=== PATIENT | female | born 1980 | race Caucasian/White ===

== ENCOUNTER 2018-01-31 19:20 | Emergency (ER) | payer OTHER ==
[~2018-01-31] VITALS: Ht 167.6 cm; Wt 103.4 kg
[~2018-01-31 19:20] MED LIST: CLEOCIN HCL150 MG PO; NORCO 5-325 TA1 EACH PO
[2018-01-31] MEDS ORDERED: CEFDINIR300 MG PO (19:45)
[2018-01-31 21:08] VITALS: BP 126/73
== END 2018-01-31 21:09 | disposition home or self-care (01) ==
LOC: ER 19:20
DX: H66.91 Otitis media, unspecified, right ear (principal); R76.11 Nonspecific reaction to tuberculin skin test without active tuberculosis; F17.210 Nicotine dependence, cigarettes, uncomplicated; Z88.1 Allergy status to other antibiotic agents; Z98.890 Other specified postprocedural states

== ENCOUNTER 2018-03-02 20:27 | Emergency (ER) | payer OTHER ==
[~2018-03-02] VITALS: Ht 165.1 cm; Wt 99.8 kg
[~2018-03-02 20:27] MED LIST changes: +CEFDINIR300 MG PO
[2018-03-02 21:03] LABS: BASOPHILS 1.2 % (0.0-2.0); EOSINOPHILS 2.5 % (0.0-3.0); HEMATOCRIT 41.1 % (37.0-47.0); HEMOGLOBIN 14.3 gm/dL (12.0-15.0); LYMPHOCYTES 29.6 % (24.0-44.0); MCH 32.9 pg (26.0-34.0); MCHC 34.9 g/dL (28.0-37.0); MCV 94.4 fL (80.0-100.0); PLATELET COUNT 267 thou/uL (150-400); POLYS 60.7 % (36.0-66.0); RBC 4.36 mil/uL (4.20-5.00); RDW 12.7 % (10.5-14.5); WBC 8.2 thou/uL (4.0-11.0)
[2018-03-02 21:04] LABS: URINE BILIRUBIN NEGATIVE (Negative); URINE BLOOD NEGATIVE (Negative); URINE CLARITY CLEAR; URINE COLOR YELLOW; URINE GLUCOSE-RANDOM* NEGATIVE (Negative); URINE KETONES NEGATIVE (Negative); URINE LEUKOCYTES NEGATIVE (Negative); URINE NITRITE NEGATIVE (Negative); URINE PROTEIN (DIPSTICK) NEGATIVE (Negative); URINE UROBILINOGEN 0.2 E.U./dl (0.2-1.0)
[2018-03-02 21:07] LABS: CALCIUM 8.8 mg/dL (8.5-10.1); CREATININE 1.2 mg/dL (0.6-1.0); POTASSIUM 4.2 mmol/L (3.5-5.1)
[2018-03-02 21:13] LABS: ALBUMIN 3.3 g/dL (3.4-5.0); TOTAL BILIRUBIN 0.2 mg/dL (<0.1-1.0); TOTAL PROTEIN 6.6 g/dL (6.4-8.2)
[2018-03-02] MEDS ORDERED: PEPCID20 MG PO (22:25)
[2018-03-02] MEDS ORDERED: PHENERGAN 25 MG25 M1 PO (22:25)
[2018-03-02] MEDS ORDERED: BENTYL 20 MG TA20 M1 PO (22:25)
[2018-03-02] MEDS ORDERED: HYDROCODONE-AP1 EAC6 PO (22:33)
[2018-03-02 22:49] VITALS: BP 118/79
[2018-03-04] MEDS ORDERED: BENTYL 20 MG TA20 M1 PO (22:58)
[2018-03-04] MEDS ORDERED: PHENERGAN 25 MG25 M1 PO (22:58)
== END 2018-03-02 22:49 | disposition home or self-care (01) ==
LOC: ER 20:27
PROVIDERS: Physician Assistant
DX: O26.891 Other specified pregnancy related conditions, first trimester (principal); O21.8 Other vomiting complicating pregnancy; R10.13 Epigastric pain; F17.210 Nicotine dependence, cigarettes, uncomplicated; Z88.1 Allergy status to other antibiotic agents; Z98.890 Other specified postprocedural states; Z3A.00 Weeks of gestation of pregnancy not specified

== ENCOUNTER 2018-06-21 22:04 | Emergency (ER) | payer OTHER ==
[~2018-06-21] VITALS: Ht 165.1 cm; Wt 104.3 kg
[~2018-06-21 22:04] MED LIST changes: +BENTYL 20 MG TA20 M1 PO; +CEFUROXIME500 MG PO; +HYDROCODONE-AP1 EAC6 PO; +PEPCID20 MG PO; +PHENERGAN 25 MG25 M1 PO; +TRAMADOL 50 MG50 MG PO; +ZOFRAN8 MG PO
[2018-06-21 22:08] VITALS: BP 137/82
[2018-06-21] MEDS ORDERED: ZPAK PO (22:40)
== END 2018-06-21 23:19 | disposition home or self-care (01) ==
LOC: ER 22:04
DX: J20.9 Acute bronchitis, unspecified (principal); J06.9 Acute upper respiratory infection, unspecified; J02.9 Acute pharyngitis, unspecified; F17.210 Nicotine dependence, cigarettes, uncomplicated; Z88.1 Allergy status to other antibiotic agents

== ENCOUNTER 2018-07-30 22:20 | Emergency (ER) | payer OTHER ==
[~2018-07-30] VITALS: Ht 165.1 cm; Wt 104.3 kg
[~2018-07-30 22:20] MED LIST changes: +ZPAK PO
[2018-07-30 22:29] LABS: URINE BILIRUBIN NEGATIVE (Negative); URINE BLOOD NEGATIVE (Negative); URINE CLARITY CLEAR; URINE COLOR YELLOW; URINE GLUCOSE-RANDOM* NEGATIVE (Negative); URINE KETONES NEGATIVE (Negative); URINE LEUKOCYTES-REFLEX NEGATIVE (Negative); URINE NITRITE-REFLEX NEGATIVE (Negative); URINE PROTEIN (DIPSTICK) NEGATIVE (Negative); URINE UROBILINOGEN 0.2 E.U./dl (0.2-1.0)
[2018-07-30 22:30] VITALS: BP 120/81
[2018-07-30 23:16] LABS: ABSOLUTE NEUTROPHILS 4.3 thou/uL (1.4-8.2); BASOPHILS 0.8 % (0.0-2.0); EOSINOPHILS 2.5 % (0.0-3.0); HEMATOCRIT 42.3 % (37.0-47.0); HEMOGLOBIN 14.3 gm/dL (12.0-15.0); LYMPHOCYTES 31.2 % (24.0-44.0); MCH 31.6 pg (26.0-34.0); MCHC 33.7 g/dL (28.0-37.0); MCV 93.7 fL (80.0-100.0); MONOCYTES 5.7 % (1.0-8.0); PLATELET COUNT 266 thou/uL (150-400); POLYS 59.8 % (36.0-66.0); RBC 4.51 mil/uL (4.20-5.00); RDW 13.1 % (10.5-14.5); WBC 7.2 thou/uL (4.0-11.0)
[2018-07-30 23:22] LABS: CALCIUM 8.8 mg/dL (8.5-10.1); POTASSIUM 4.1 mmol/L (3.5-5.1)
== END 2018-07-31 00:17 | disposition home or self-care (01) ==
LOC: ER 22:20
PROVIDERS: Emergency Medicine
DX: R35.0 Frequency of micturition (principal); M54.9 Dorsalgia, unspecified; R11.10 Vomiting, unspecified; F17.210 Nicotine dependence, cigarettes, uncomplicated; Z88.1 Allergy status to other antibiotic agents

== ENCOUNTER 2018-08-23 22:47 | Emergency (ER) | payer OTHER ==
[~2018-08-23] VITALS: Ht 167.6 cm; Wt 90.7 kg
[2018-08-23] MEDS ORDERED: SUPHEDRINE SINU30 MG PO (23:43)
[2018-08-23] MEDS ORDERED: CEFDINIR300 MG PO (23:43)
[2018-08-23 23:55] VITALS: BP 138/82
== END 2018-08-23 23:55 | disposition home or self-care (01) ==
LOC: ER 22:47
DX: H66.91 Otitis media, unspecified, right ear (principal); F17.210 Nicotine dependence, cigarettes, uncomplicated; Z98.890 Other specified postprocedural states

== ENCOUNTER 2018-10-01 20:33 | Emergency (ER) | payer OTHER ==
[~2018-10-01] VITALS: Ht 165.1 cm; Wt 104.3 kg
[~2018-10-01 20:33] MED LIST changes: +SUPHEDRINE SINU30 MG PO
[2018-10-01] MEDS ORDERED: PYRIDOXINE HCL25 MG PO (21:26)
[2018-10-01 21:56] VITALS: BP 108/68
== END 2018-10-01 21:52 | disposition home or self-care (01) ==
LOC: ER 20:33
DX: O99.351 Diseases of the nervous system complicating pregnancy, first trimester (principal); G43.909 Migraine, unspecified, not intractable, without status migrainosus; O21.8 Other vomiting complicating pregnancy; F17.210 Nicotine dependence, cigarettes, uncomplicated; Z98.890 Other specified postprocedural states; Z88.1 Allergy status to other antibiotic agents; Z3A.01 Less than 8 weeks gestation of pregnancy

== ENCOUNTER 2018-10-05 03:45 | Emergency (ER) | payer OTHER ==
[~2018-10-05] VITALS: Ht 167.6 cm; Wt 113.4 kg
[~2018-10-05 03:45] MED LIST changes: +PYRIDOXINE HCL25 MG PO
[2018-10-05 04:04] LABS: ABSOLUTE NEUTROPHILS 6.6 thou/uL (1.4-8.2); BASOPHILS 1.4 % (0.0-2.0); EOSINOPHILS 2.7 % (0.0-3.0); HEMOGLOBIN 15.2 gm/dL (12.0-15.0); LYMPHOCYTES 29.6 % (24.0-44.0); MCH 31.3 pg (26.0-34.0); MCHC 33.7 g/dL (28.0-37.0); MCV 92.7 fL (80.0-100.0); MONOCYTES 5.4 % (1.0-8.0); PLATELET COUNT 300 thou/uL (150-400); POLYS 60.9 % (36.0-66.0); RBC 4.85 mil/uL (4.20-5.00); RDW 13.5 % (10.5-14.5); WBC 10.8 thou/uL (4.0-11.0)
[2018-10-05 04:09] LABS: CALCIUM 9.2 mg/dL (8.5-10.1); POTASSIUM 4.5 mmol/L (3.5-5.1)
[2018-10-05 05:08] LABS: URINE BILIRUBIN NEGATIVE (Negative); URINE BLOOD NEGATIVE (Negative); URINE CLARITY CLEAR; URINE COLOR YELLOW; URINE GLUCOSE-RANDOM* NEGATIVE (Negative); URINE KETONES NEGATIVE (Negative); URINE LEUKOCYTES-REFLEX NEGATIVE (Negative); URINE NITRITE-REFLEX NEGATIVE (Negative); URINE PROTEIN (DIPSTICK) NEGATIVE (Negative); URINE SPECIFIC GRAVITY >= 1.030 (1.005-1.035); URINE UROBILINOGEN 0.2 E.U./dl (0.2-1.0)
[2018-10-05 05:16] LABS: AMP/METHAMP Negative (Negative); BARBITURATES Negative (Negative); BENZODIAZEPINES Negative (Negative); COCAINE Negative (Negative); METHADONE Negative (Negative); OPIATES Negative (Negative); PCP Negative (Negative)
[2018-10-05] MEDS ORDERED: TYLENOL325 M1 PO (05:44)
[2018-10-05] MEDS ORDERED: FLEXERIL PO (05:44)
[2018-10-05] MEDS ORDERED: REGLAN 10 MG TA10 MG PO (05:45)
[2018-10-05 06:31] VITALS: BP 138/90
== END 2018-10-05 06:36 | disposition home or self-care (01) ==
LOC: ER 03:45
PROVIDERS: Emergency Medicine
DX: O21.8 Other vomiting complicating pregnancy (principal); O99.89 Other specified diseases and conditions complicating pregnancy, childbirth and the puerperium; M54.6 Pain in thoracic spine; O09.521 Supervision of elderly multigravida, first trimester; O99.351 Diseases of the nervous system complicating pregnancy, first trimester; G43.909 Migraine, unspecified, not intractable, without status migrainosus; O99.331 Smoking (tobacco) complicating pregnancy, first trimester; F17.210 Nicotine dependence, cigarettes, uncomplicated; Z3A.01 Less than 8 weeks gestation of pregnancy

== ENCOUNTER 2018-11-22 19:30 | Emergency (ER) | payer OTHER ==
[~2018-11-22] VITALS: Ht 167.6 cm; Wt 108.9 kg
[2018-11-22 19:30] VITALS: BP 119/77
[~2018-11-22 19:30] MED LIST changes: +FLEXERIL PO; +REGLAN 10 MG TA10 MG PO; +TYLENOL325 M1 PO
[2018-11-22] MEDS ORDERED: PRENATAL PO (19:36)
[2018-11-22] MEDS ORDERED: APAP650 PO (20:14)
[2018-11-22] MEDS ORDERED: CIPRODEX OTIC7.5 ML OTIC (20:14)
== END 2018-11-22 20:20 | disposition home or self-care (01) ==
LOC: ER 19:30
DX: H60.91 Unspecified otitis externa, right ear (principal); G43.909 Migraine, unspecified, not intractable, without status migrainosus; F17.210 Nicotine dependence, cigarettes, uncomplicated; Z88.1 Allergy status to other antibiotic agents; Z98.890 Other specified postprocedural states